=== PATIENT | male | born 1960 | race Caucasian/White ===

== ENCOUNTER 2021-05-02 17:18 | Emergency (ER) | payer OTHER ==
[~2021-05-02 17:18] MED LIST: Sodium Chloride 0.9% 1,000 ML BAG ONE
[2021-05-02] MEDS ORDERED: Ondansetron PF 4 MG/2 ML Vial ONE (17:37)
[2021-05-02 17:46] LABS: #Basophils 0.2 thou/uL (0.0-0.2); #Eosinphils 0.3 thou/uL (0.0-0.7); #Monocytes 1.1 thou/uL (0.11-0.59); #Neutrophils 7.2 thou/uL (1.40-6.50); %Basophils 1.2 % (0.0-1.0); %Eosinophils 2.2 % (0.0-10.0); %Lymphocytes 31.5 % (21.0-51.0); %Monocytes 8.8 % (0.0-10.0); %Neutrophils 56.3 % (42.0-75.0); Hemoglobin 14.8 g/dL (14.0-18.0); Mean Corpuscular HGB CONC 31.6 g/dL (32.0-36.0); Mean Corpuscular Hemoglobin 31.9 pg (27.0-31.0); Mean Platelet Volume 8.5 fL (7.4-10.4); Platelet Count 327 thou/uL (130-400); RBC Distribution Width 13.4 % (11.5-14.5); Red Blood Cell (RBC) Count 4.65 mill/uL (4.70-6.10); White Blood Cell (WBC) Count 12.8 thou/uL (4.8-10.8)
[2021-05-02 18:03] LABS: ALT (SGPT) 28 U/L (8-55); AST (SGOT) 28 U/L (5-34); Alkaline Phosphatase 121 U/L (40-110); Anion Gap 13 mmol/L (10-20); BUN (Urea Nitrogen) 17 mg/dL (8.4-25.7); Bilirubin, Total 0.3 mg/dL (0.2-1.2); Calc. Creatinine Clearance 0 mL/min (70-130); Calcium 8.9 mg/dL (7.8-10.44); Carbon Dioxide 27 mmol/L (22-29); Chloride 105 mmol/L (98-107); Globulin 3.6 g/dL (2.4-3.5); Glucose 128 mg/dL (70-105); Lipase 15 U/L (8-78); Potassium 3.6 mmol/L (3.5-5.1); Protein, Total 7.6 g/dL (6.0-8.3); Sodium 141 mmol/L (136-145)
[2021-05-02 18:35] LABS: SARS-CoV-2 NAA Rapid Test Not Detected (NotDetected)
[2021-05-02 18:36] LABS: CKMB 7.6 ng/mL (0-6.6)
[2021-05-03] MEDS ORDERED: Heparin 25,000 units/D5W 500 ML ONE (08:03)
[2021-05-03] MEDS ORDERED: Heparin 10,000 UNITS/1 ML VIAL ONE (08:03)
[2021-05-03] MEDS ORDERED: Aspirin Chewable 81 MG TAB ONE (08:03)
[2021-05-03] MEDS ORDERED: Metoprolol Tartrate 5 MG/5 ML VIAL ONE (08:03)
== END 2021-05-02 18:08 | disposition short-term general hospital (02) ==
LOC: NAV ERS 17:18
DX: I21.3 ST elevation (STEMI) myocardial infarction of unspecified site (principal); J45.909 Unspecified asthma, uncomplicated; Z20.822 Contact with and (suspected) exposure to COVID-19; Z79.899 Other long term (current) drug therapy
CPT/HCPCS: 71045; 80053; 82553; 83690; 83880; 84484; 85025; 93005; 96365; 96374; 96375; J1644; J2405; J7050; U0002